=== PATIENT | female | born 1940 | race Caucasian/White ===

== ENCOUNTER → 2023-11-06 14:56 | Outpatient (REF) | payer MEDICARE, OTHER, SELFPAY | LOC: RAD 14:56 | PROVIDERS: ATTENDING PHYSICIAN Family Medicine | DX: M54.50 Low back pain, unspecified (principal) | CPT/HCPCS: 72072; 72110 ==

== ENCOUNTER → 2023-12-17 11:26 | Outpatient (REF) | payer OTHER, SELFPAY | LOC: RAD 11:26 | PROVIDERS: ATTENDING PHYSICIAN Family Medicine | DX: M80.0 Age-related osteoporosis with current pathological fracture (principal); Z78.0 Asymptomatic menopausal state | CPT/HCPCS: 77080 ==